=== PATIENT | female | born 1975 | race African-American/Black ===

== ENCOUNTER 2019-02-19 12:20 | Inpatient (IN) ==
[2019-02-19] MEDS ORDERED: INFLUENZA VIRUS VACCINE 0.5 ML SYRINGE IM ONE (15:18)
[2019-02-19 16:46] LABS: Basophils % 0.5 % (0.0-0.8); Eosinophils # 0.1 10*3/uL (0.0-0.87); Eosinophils % 2.6 % (0.00-10.9); Hematocrit 43.1 VOL% (35.7-47.0); Hemoglobin 14.3 GM/DL (12.0-16.0); Immature Granulocytes % 0.2 %; Immature Granulocytes Absolute 0.01 #; Lymphocytes # 2.2 10*3/uL (1.4-4.0); Lymphocytes % 51.5 % (21.3-54.2); Mean Corpuscular HGB Conc 33.2 GM/DL (32-36); Mean Corpuscular Volume 89.6 FL (87-102); Mean Platelet Volume 11.5 FL (9.6-12.0); Monocytes % 6.4 % (1.7-12.7); Neutrophils % 38.8 % (38.7-73.9); Platelet Count 116 T/CUMM (130-400); Red Blood Count 4.81 MC/CUMM (3.8-5.5); Red Cell Distribution Width 13.6 % (9.3-17.3); White Blood Count 4.2 T/CUMM (4-12)
[2019-02-19 17:01] LABS: Albumin 3.6 G/DL (3.4-5.0); Bilirubin,Total 1.4 MG/DL (0.2-1.0); Calcium 9.6 MG/DL (8.5-10.1); Osmolality,Calculated 279.4 MOS/KG (273-304); Total Protein 7.4 G/DL (6.4-8.3)
[2019-02-19] MEDS: ACETAMINOPHEN 325 MG TABLET PO PRN (18:32)
[2019-02-19] MEDS: SODIUM CHLORIDE 0.9% 1,000 ML IV SCH (19:47)
[2019-02-19] MEDS: DOCUSATE SODIUM 100 MG CAPSULE PO SCH (20:35)
[2019-02-20] MEDS ORDERED: SODIUM CHLORIDE 0.9% 250 ML IV ONE (00:45)
[2019-02-20] MEDS: SODIUM CHLORIDE 0.9% 1,000 ML IV SCH ×2 (02:54→19:05)
[2019-02-20 05:17] LABS: Calcium 8.6 MG/DL (8.5-10.1); Osmolality,Calculated 282.4 MOS/KG (273-304)
[2019-02-20 05:30] LABS: Basophils % 0.6 % (0.0-0.8); Eosinophils # 0.1 10*3/uL (0.0-0.87); Eosinophils % 2.8 % (0.00-10.9); Hematocrit 37.4 VOL% (35.7-47.0); Hemoglobin 12.4 GM/DL (12.0-16.0); Immature Granulocytes % 0.3 %; Immature Granulocytes Absolute 0.01 #; Lymphocytes # 1.5 10*3/uL (1.4-4.0); Lymphocytes % 42.8 % (21.3-54.2); Mean Corpuscular HGB Conc 33.2 GM/DL (32-36); Mean Corpuscular Volume 90.1 FL (87-102); Monocytes % 8.6 % (1.7-12.7); Neutrophils % 44.9 % (38.7-73.9); Platelet Count 112 T/CUMM (130-400); Red Blood Count 4.15 MC/CUMM (3.8-5.5); Red Cell Distribution Width 13.7 % (9.3-17.3); White Blood Count 3.6 T/CUMM (4-12)
[2019-02-20] MEDS: PANTOPRAZOLE 40 MG TABLET PO SCH (08:24)
[2019-02-20] MEDS: DOCUSATE SODIUM 100 MG CAPSULE PO SCH ×2 (08:24→20:38)
[2019-02-20] MEDS: ACETAMINOPHEN 325 MG TABLET PO PRN ×2 (08:24→15:04)
[2019-02-20 17:39] LABS: Risk Ratio 2.02
[2019-02-20] MEDS: ATORVASTATIN 40 MG TABLET PO SCH (20:38)
[2019-02-21] MEDS: SODIUM CHLORIDE 0.9% 1,000 ML IV SCH ×3 (04:51→20:10)
[2019-02-21 07:01] LABS: Basophils % 0.6 % (0.0-0.8); Eosinophils # 0.1 10*3/uL (0.0-0.87); Eosinophils % 3.2 % (0.00-10.9); Hematocrit 38.2 VOL% (35.7-47.0); Hemoglobin 12.4 GM/DL (12.0-16.0); Immature Granulocytes % 0.3 %; Immature Granulocytes Absolute 0.01 #; Lymphocytes # 1.9 10*3/uL (1.4-4.0); Lymphocytes % 54.2 % (21.3-54.2); Mean Corpuscular HGB Conc 32.5 GM/DL (32-36); Mean Corpuscular Volume 90.1 FL (87-102); Mean Platelet Volume 11.8 FL (9.6-12.0); Neutrophils % 32.7 % (38.7-73.9); Red Blood Count 4.24 MC/CUMM (3.8-5.5); Red Cell Distribution Width 13.6 % (9.3-17.3); White Blood Count 3.5 T/CUMM (4-12)
[2019-02-21 07:07] LABS: Platelet Count 80 T/CUMM (130-400)
[2019-02-21 07:31] LABS: Eosinophils 3 % (0-10); Hypochromasia 1+; Lymphocytes 45 % (20-55); Microcytosis Slight; Segmented Neutrophils 47 % (50-85); Total Cells Counted 100
[2019-02-21 07:32] LABS: Platelet Estimate Decreased
[2019-02-21] MEDS ORDERED: BICTEGRAV EMTRICIT TENOFOV ALA PO SCH (09:00)
[2019-02-21] MEDS: ASPIRIN EC 81 MG TABLET PO SCH (09:54)
[2019-02-21] MEDS: DOCUSATE SODIUM 100 MG CAPSULE PO SCH ×2 (09:55→20:08)
[2019-02-21] MEDS: PANTOPRAZOLE 40 MG TABLET PO SCH (09:55)
[2019-02-21] MEDS: MORPHINE 4 MG/1 ML VIAL IV PRN (14:18)
[2019-02-21] MEDS: ONDANSETRON 4 MG/2 ML VIAL IV PRN (17:59)
[2019-02-21 18:40] LABS: Calcium 8.8 MG/DL (8.5-10.1)
[2019-02-21] MEDS: ATORVASTATIN 40 MG TABLET PO SCH (20:08)
[2019-02-21] MEDS: MAGNESIUM HYDROXIDE SUSP 30 ML UDCUP PO PRN (22:24)
[2019-02-21] MEDS ORDERED: ONDANSETRON 4 MG/2 ML VIAL IV PRN (23:02)
[2019-02-22] MEDS: ONDANSETRON 4 MG/2 ML VIAL IV PRN ×2 (00:06→13:05)
[2019-02-22] MEDS: SODIUM CHLORIDE 0.9% 1,000 ML IV SCH ×3 (04:20→21:27)
[2019-02-22] MEDS: MORPHINE 4 MG/1 ML VIAL IV PRN ×2 (04:21→13:05)
[2019-02-22 06:30] LABS: Basophils % 0.5 % (0.0-0.8); Eosinophils # 0.1 10*3/uL (0.0-0.87); Eosinophils % 3.8 % (0.00-10.9); Hematocrit 38.1 VOL% (35.7-47.0); Hemoglobin 12.7 GM/DL (12.0-16.0); Immature Granulocytes % 0.3 %; Immature Granulocytes Absolute 0.01 #; Lymphocytes # 1.7 10*3/uL (1.4-4.0); Lymphocytes % 47.8 % (21.3-54.2); Mean Corpuscular HGB Conc 33.3 GM/DL (32-36); Mean Platelet Volume 11.8 FL (9.6-12.0); Neutrophils % 39.6 % (38.7-73.9); Red Blood Count 4.28 MC/CUMM (3.8-5.5); Red Cell Distribution Width 13.5 % (9.3-17.3); White Blood Count 3.6 T/CUMM (4-12)
[2019-02-22 06:31] LABS: Platelet Count 92 T/CUMM (130-400)
[2019-02-22 07:11] LABS: Platelet Estimate Decreased
[2019-02-22 07:12] LABS: Polychromasia Few
[2019-02-22] MEDS: ASPIRIN EC 81 MG TABLET PO SCH (08:47)
[2019-02-22] MEDS: DOCUSATE SODIUM 100 MG CAPSULE PO SCH ×2 (08:47→21:02)
[2019-02-22] MEDS: PANTOPRAZOLE 40 MG TABLET PO SCH (08:47)
[2019-02-22] MEDS: CLOPIDOGREL 75 MG TABLET PO SCH (08:47)
[2019-02-22] MEDS: MAGNESIUM HYDROXIDE SUSP 30 ML UDCUP PO PRN (08:47)
[2019-02-22] MEDS ORDERED: BISACODYL 10 MG SUPP RECTAL PRN (14:44)
[2019-02-22] MEDS ORDERED: METOCLOPRAMIDE 10 MG/2 ML VIAL IV PRN (17:49)
[2019-02-22] MEDS ORDERED: diphenhydrAMINE 50 MG/1 ML VIAL IV PRN (17:50)
[2019-02-22] MEDS ORDERED: PROMETHAZINE 25 MG/1 ML VIAL IM PRN (17:50)
[2019-02-22] MEDS ORDERED: MINERAL OIL ENEMA 133 ML BOTTLE RECTAL PRN (18:04)
[2019-02-22] MEDS: ATORVASTATIN 40 MG TABLET PO SCH (21:02)
[2019-02-23] MEDS: ONDANSETRON 4 MG/2 ML VIAL IV PRN (02:06)
[2019-02-23] MEDS: DOCUSATE SODIUM 100 MG CAPSULE PO SCH (08:45)
[2019-02-23] MEDS: CLOPIDOGREL 75 MG TABLET PO SCH (08:45)
[2019-02-23] MEDS: ACETAMINOPHEN 325 MG TABLET PO PRN (08:45)
[2019-02-23] MEDS: PANTOPRAZOLE 40 MG TABLET PO SCH (08:46)
[2019-02-23] MEDS: ASPIRIN EC 81 MG TABLET PO SCH (08:46)
[2019-02-23] MEDS ORDERED: ATENOLOL 25 MG TABLET PO SCH (09:00)
[2019-02-23 11:28] VITALS: BP 149/104
[2019-02-23] MEDS ORDERED: amLODIPine 10 MG TABLET PO SCH (12:20)
[2019-02-23 12:36] LABS: Protein C Activity Plasma 40 % (70 - 150); Protein S Ag (Free) 58 % (50 - 160)
[2019-02-23 14:26] LABS: DRVVT Screen Ratio 1.11 ratio (<1.20); INR 1.3 (0.9-1.1)
[2019-02-23 15:36] LABS: Protein S Activity Plasma 78 % (50 - 160)
[2019-02-26 15:01] LABS: Protein C Antigen 35 % (70-150)
[2019-02-26 18:35] LABS: F5DNA Reviewed By SEE COMMENTS; Factor V Leiden (R506Q) Mutati Negative (Negative)
[2019-02-28 11:45] LABS: PT Mix 1:1 (Mayo Reflex) 12.4 sec (9.4 - 12.5)
== END 2019-02-23 14:10 | disposition home health service (06) | DRG 65 ==
LOC: N.4E
PROVIDERS: ADMIT Family Medicine; ATTEND Family Medicine